=== PATIENT | female | born 2000 | race Caucasian/White ===

== ENCOUNTER 2020-10-01 09:15 | Observation (INO) ==
[2020-10-01 11:10] LABS: Basophils # (auto) 0.03 K/uL (0-0.2); Basophils % (auto) 0.4 %; Eosinophils # (auto) 0.07 K/uL (0-0.5); Eosinophils % (auto) 0.8 %; Hematocrit (blood only) 43.4 % (37-47); Lymphocytes # (auto) 2.68 K/uL (1.2-3.4); Lymphocytes % (auto) 31.9 %; Mean Corpuscular Hgb Conc 34.6 g/dL (32-36); Mean Corpuscular Volume 83.9 fL (80-100); Mean Platelet Volume 9.7 fL (7.4-10.4); Monocytes # (auto) 0.58 K/uL (0.11-0.59); Monocytes % (auto) 6.9 %; Neutrophils # (auto) 5.05 K/uL (1.4-6.5); Platelet Count 365 K/uL (130-400); RDW Coefficient of Variation 14.1 % (11.5-14.5); RDW Standard Deviation 43.2 fL (36.4-46.3); Red Blood Count 5.17 M/uL (4.2-5.4); White Blood Count 8.41 K/uL (4.8-10.8)
[2020-10-01 11:27] LABS: BUN Creatinine Ratio 9.8 (10-20); Calcium 10.5 mg/dl (8.5-10.1); Creatinine Clr Calc Pharmacy 147.5 ml/min; Est GFR (African American) 139.7 ml/min; Est GFR (Non-African American) 120.6 ml/min; Potassium 4.1 mmol/L (3.5-5.1)
[2020-10-01 11:28] LABS: Appearance Urine Clear (Clear); Bacteria Urine Automated 1+ (Negative); Bilirubin Urine Negative (Negative); Blood Urine Trace (Negative); Cast Urine Automated 0 /lpf (0-5); Color Urine Yellow; Epithelial Cell Urine Auto >30 /lpf (0-5); Glucose Urine UA Negative (Negative); Ketones Urine Negative (Negative); Leukocyte Esterase Urine 2+ (Negative); Nitrite Urine Negative (Negative); Protein Urine Negative (Negative); RBC Urine Automated 0-4 /hpf (0-4); Specific Gravity Urine 1.007 (1.000-1.030); Urobilinogen Urine Negative (Negative)
[2020-10-01 11:33] LABS: Bilirubin,Total 2.1 mg/dl (0.2-1)
[2020-10-01] MEDS ORDERED: SODIUM CHLORIDE 0.9% 1000ML 1,000 ML IV ONE (12:27)
[2020-10-01] MEDS ORDERED: KETOROLAC TROMETHAMINE 15 MG/ML VIAL IV ONE (12:28)
--- NOTE | 2020-10-01 12:32 | Emergency Department Note ---
Impression & Plan Choledocholithiasis, Elevated LFTs, Abdominal pain, Cholelithiasis ED Provider Note NAME: YVONNE ALEGRIA AGE: 20 SEX: F : 2000 ARRIVES VIA: Walk-In INFORMANT: Patient ED PROVIDER(S): Zeke Pritchard DO CHIEF COMPLAINT: Abdominal pain HPI: Patient is a 20-year-old female who presents the ER for abdominal pain. Symptoms started last night and has been constant in the epigastric region. Associate with nausea but no vomiting. She denies any dysuria, urgency, or frequency. She notes she has been getting this for over a year. Symptoms come and go. She does not believe that is associated with eating and drinking. She notes it is worse at night. Over the past week she has been getting this daily. Denies any chest pain or shortness of breath. No other exacerbating or remitting factors. Pain is fairly mild at this time she does not want anything for pain. ROS: See above HPI for pertinent positives & negatives. A total of 10 systems reviewed and were otherwise negative. PAST MEDICAL HISTORY:See Below PAST SURGICAL HISTORY:See Below FAMILY HISTORY:See Below SOCIAL HISTORY:See Below HOME MEDICATIONS:See Below ALLERGIES:See Below VITALS:See Below PHYSICAL EXAMINATION: GENERAL: Sitting up in bed, alert, well appearing, well nourished, no distress, non-toxic EYE EXAM: normal conjunctiva. OROPHARYNX: no exudate, no erythema, lips, buccal mucosa, and tongue normal and mucous membranes are moist NECK: supple, no nuchal rigidity, no adenopathy, non-tender LUNGS: Clear to auscultation. Normal chest wall mechanics HEART: no murmurs, S1 normal and S2 normal ABDOMEN: abdomen soft, non-tender, normo-active bowel sounds, no masses, no re bound or guarding. UPPER EXTREMITIES: upper extremities are grossly normal. LOWER EXTREMITIES: No pitting edema. NEURO EXAM: Normal sensorium, cranial nerves II-XII grossly intact, normal speech, no gross weakness of arms, no gross weakness of legs. MEDICAL DECISION MAKING: Patient is a 20-year-old female who presents ER for epigastric abdominal pain. IV was established blood was obtained. Labs show no significant leukocytosis or anemia. BMP was unremarkable. T bili elevated 2.1. AST and ALT were in the 600s. Alk phos was elevated as well. Lipase was unremarkable. UA was contaminated with multiple epithelial cells. was negative. Covid was negative. Ultrasound shows cholelithiasis. CBD of 7 to 8 mm. Question if this is choledocholithiasis. Patient was given IV fluids. She was updated bedside. Discussed with Robinson from gastroenterology. Discussed with the hospitalist for further evaluation. Triage Nursing notes reviewed. Limited review of prior medical records performed Vital Signs: reviewed and remarkable for HTN Differential diagnosis: Differential diagnoses includes but is not limited to gastritis, peptic ulcer disease, GERD, gallbladder disease, pancreatitis, small bowel obstruction, acute coronary syndrome, pericarditis, ischemic bowel, irritable bowel disease, irritable bowel syndrome, appendicitis, diverticulitis, malignancy, hernia, urinary tract infection, torsion, [/ectopic (if female)], perforation, trauma, infectious. ER treatment provided: See below Diagnostics interpreted by me: Cardiac Monitoring: An order was placed for continuous cardiac monitoring. The monitor shows a rate of 62 with sinus rhythm. Laboratory studies: As stated above and show below. Imaging studies: Ultrasound as discussed above Consultation(s): Discussed with gastroenterology as discussed above Discussed with the hospitalist from [facility]. Procedures: none Critical Care: None Past Med/Surg History Medical History Chronic migraine PCOS (polycystic ovarian syndrome) Surgical History History of tonsillectomy Family History Mother Cervical cancer Father Overdose Heart disease Grandmother (Paternal) Diabetes Sister Cancer ALL Social History Smoking Status: Current every day smoker Tobacco Type: Cigarettes and E-cigarettes / Vaping Cigarettes Per Day: 10; Second Hand Exposure: No; Do You Dip or Chew Tobacco: No; Tobacco Cessation Education Requested by Patient: No Hx Alcohol Use: No Hx Substance Use: No Preferred Language: Bahraini Communication Ability: Effective Digital Media Sales Consultant Required: No Beliefs That Will Affect Care: None Current Living Situation: Significant Other and Other Current Living Situation Comment: Boyfriend and Boyfriend's mother Other Information That Helps Us Care for You: No Feels Safe at Home: Yes Safety Concerns: Feels Safe At This Time Assistive Devices: None Allergies Allergies Allergy/AdvReac Type Severity Reaction Status Date / Time latex Allergy Intermediate Hives/Itchi Unverified 10/01/20 12:55 ng hydrocodone Allergy Unknown Hives Unverified 10/01/20 12:55 Home Meds Home Medications Medication Instructions Recorded Confirmed dihydroxyaluminum sodium carb 334 334 mg PO DIRECTED PRN 10/01/20 10/01/20 mg chewable tablet etonogestrel 68 mg subdermal 68 mg SUBDERMAL CONT 10/01/20 10/01/20 implant (Nexplanon) ibuprofen 200 mg tablet 200 mg PO Q6H PRN 10/01/20 10/01/20 Results & Data (ED) Vital Signs Vital Signs - 24 hr 10/01/20 09:50 10/01/20 12:44 Temperature 36.9 C Temperature Source Oral Pulse Rate 62 Pulse Rate [Finger] 70 Respiratory Rate 16 16 Blood Pressure 152/106 H Blood Pressure [Left Arm] 157/102 H Blood Pressure Mean 121 Blood Pressure Mean [Left Arm] 120 Blood Pressure Position [Left Arm] Sitting Pulse Oximetry 99 100 Oxygen Delivery Method Room Air Room Air Sepsis Recent Fever Within 48 Hours No Sepsis New/Unexplained Change in Mental Status No Sepsis Action Taken by Nursing No Action Required Laboratory Data Result diagrams: 10/01/20 10:54 10/01/20 10:54 Lab Results 10/01/20 10/01/20 10/01/20 Range/Units 10:54 10:54 10:55 WBC 8.41 (4.8-10.8) K/uL RBC 5.17 (4.2-5.4) M/uL Hgb 15.0 (12.0-16.0) g/dL Hct 43.4 (37-47) % MCV 83.9 (80-100) fL MCH 29.0 (25-34) pg MCHC 34.6 (32-36) g/dL RDW Std Deviation 43.2 (36.4-46.3) fL RDW Coeff of Adriana 14.1 (11.5-14.5) % Plt Count 365 (130-400) K/uL MPV 9.7 (7.4-10.4) fL Immature Gran % (Auto) 0.0 % Neut % (Auto) 60.0 % Lymph % (Auto) 31.9 % [place] % (Auto) 6.9 % Eos % (Auto) 0.8 % Baso % (Auto) 0.4 % Neut # (Auto) 5.05 (1.4-6.5) K/uL Lymph # (Auto) 2.68 (1.2-3.4) K/uL [place] # (Auto) 0.58 (0.11-0.59) K/uL Eos # (Auto) 0.07 (0-0.5) K/uL Baso # (Auto) 0.03 (0-0.2) K/uL Immature Gran # (Auto) 0.00 (0.00-0.02) K/uL Sodium 138 (136-145) mmol/L Potassium 4.1 (3.5-5.1) mmol/L Chloride 107 (98-107) mmol/L Carbon Dioxide 24 (21-32) mmol/L Anion Gap 7.0 (3-11) BUN 7 (7-18) mg/dl Creatinine 0.72 (0.6-1.2) mg/dl Est Cr Clr Drug Dosing 147.5 ml/min Est GFR ( Amer) 139.7 ml/min Est GFR (Non-Af Amer) 120.6 ml/min BUN/Creatinine Ratio 9.8 L (10-20) Glucose 91 (70-99) mg/dl Calcium 10.5 H (8.5-10.1) mg/dl Total Bilirubin 2.1 H (0.2-1) mg/dl AST 641 H (15-37) U/L ALT 619 H (12-78) U/L Alkaline Phosphatase 129 H (45-117) U/L Total Protein 8.0 (6.4-8.2) gm/dl Albumin 4.0 (3.4-5.0) gm/dl Globulin 4.0 (2.5-4.0) gm/dl Albumin/Globulin Ratio 1.0 (0.9-2) Lipase 150 (73-393) U/L Urine Color Yellow Urine Appearance Clear (Clear) Urine pH 7.0 (4.5-7.5) Ur Specific Antimony 1.007 (1.000-1.030) Urine Protein Negative (Negative) Urine Glucose (UA) Negative (Negative) Urine Ketones Negative (Negative) Urine Blood Trace H (Negative) Urine Nitrite Negative (Negative) Urine Bilirubin Negative (Negative) Urine Urobilinogen Negative (Negative) Ur Leukocyte Esterase 2+ H (Negative) Urine WBC (Auto) 5-10 H (0-5) /hpf Urine RBC (Auto) 0-4 (0-4) /hpf U Hyaline Cast (Auto) 0 (0-5) /lpf U Epithel Cells (Auto) >30 H (0-5) /lpf Urine Bacteria (Auto) 1+ H (Negative) Urine Test (Negative) COVID-19 Eval Order SARS-CoV-2 (PCR) (Negative) 10/01/20 10/01/20 10/01/20 Range/Units 10:55 12:58 12:58 WBC (4.8-10.8) K/uL RBC (4.2-5.4) M/uL Hgb (12.0-16.0) g/dL Hct (37-47) % MCV (80-100) fL MCH (25-34) pg MCHC (32-36) g/dL RDW Std Deviation (36.4-46.3) fL RDW Coeff of Adriana (11.5-14.5) % Plt Count (130-400) K/uL MPV (7.4-10.4) fL Immature Gran % (Auto) % Neut % (Auto) % Lymph % (Auto) % [place] % (Auto) % Eos % (Auto) % Baso % (Auto) % Neut # (Auto) (1.4-6.5) K/uL Lymph # (Auto) (1.2-3.4) K/uL [place] # (Auto) (0.11-0.59) K/uL Eos # (Auto) (0-0.5) K/uL Baso # (Auto) (0-0.2) K/uL Immature Gran # (Auto) (0.00-0.02) K/uL Sodium (136-145) mmol/L Potassium (3.5-5.1) mmol/L Chloride (98-107) mmol/L Carbon Dioxide (21-32) mmol/L Anion Gap (3-11) BUN (7-18) mg/dl Creatinine (0.6-1.2) mg/dl Est Cr Clr Drug Dosing ml/min Est GFR ( Amer) ml/min Est GFR (Non-Af Amer) ml/min BUN/Creatinine Ratio (10-20) Glucose (70-99) mg/dl Calcium (8.5-10.1) mg/dl Total Bilirubin (0.2-1) mg/dl AST (15-37) U/L ALT (12-78) U/L Alkaline Phosphatase (45-117) U/L Total Protein (6.4-8.2) gm/dl Albumin (3.4-5.0) gm/dl Globulin (2.5-4.0) gm/dl Albumin/Globulin Ratio (0.9-2) Lipase (73-393) U/L Urine Color Urine Appearance (Clear) Urine pH (4.5-7.5) Ur Specific Antimony (1.000-1.030) Urine Protein (Negative) Urine Glucose (UA) (Negative) Urine Ketones (Negative) Urine Blood (Negative) Urine Nitrite (Negative) Urine Bilirubin (Negative) Urine Urobilinogen (Negative) Ur Leukocyte Esterase (Negative) Urine WBC (Auto) (0-5) /hpf Urine RBC (Auto) (0-4) /hpf U Hyaline Cast (Auto) (0-5) /lpf U Epithel Cells (Auto) (0-5) /lpf Urine Bacteria (Auto) (Negative) Urine Test Negative (Negative) COVID-19 Eval Order Covid19 at [facility] SARS-CoV-2 (PCR) NEGATIVE (Negative) Administered Medications Discontinued Medications Sodium Chloride (Nss 1000ml) 1,000 mls @ 999 mls/hr IV .Q1H1M ONE Stop: 10/01/20 13:27 Last Infusion: 10/01/20 15:36 Dose: 0 mls/hr Documented by: [id number] Admin: 10/01/20 12:50 Dose: 999 mls/hr Documented by: [id number] Piperacillin Sod/Tazobactam Sod (Zosyn) 4.5 gm in 120 mls @ 240 mls/hr IV NOW ONE Stop: 10/01/20 14:26 Last Infusion: 10/01/20 15:36 Dose: 0 mls/hr Documented by: [id number] Admin: 10/01/20 14:34 Dose: 240 mls/hr Documented by: [id number] Ketorolac Tromethamine (Ketorolac Tromethamine 15 Mg/Ml Vial) 10 mg IV NOW ONE Stop: 10/01/20 12:29 Last Admin: 10/01/20 12:51 Dose: 10 mg Documented by: [id number] Imaging Data Radiologist's Impression: Gallbladder Ultrasound 10/01/20 12:27 ULTRASOUND RIGHT UPPER QUADRANT ABDOMEN CLINICAL HISTORY: Right upper quadrant abdominal pain. COMPARISON STUDY: No priors. TECHNIQUE: Real-time, grayscale, and color flow sonography of the right upper quadrant of the abdomen was performed. Images are reviewed in the transverse and longitudinal planes. FINDINGS: Liver: The liver is normal in size and echotexture. There is no intrahepatic biliary ductal dilatation. The main portal vein is patent. A 1 cm round echogenic focus in the left lobe likely represents a small hemangioma. This is of doubtful significance in this age group. Gallbladder: The gallbladder is filled with shadowing stones. There is no gallbladder wall thickening or pericholecystic fluid. There is mild tenderness while scanning the right upper quadrant. This does not constitute a sonographic Bartlett's sign. The common bile duct measures up to 0.8 cm in diameter. Pancreas: Visualized portions of the pancreatic head and body are normal in appearance. Right kidney: Survey images of the right kidney demonstrate normal size and echotexture. There is no hydronephrosis. Ascites: None. IMPRESSION: Cholelithiasis without clear sonographic evidence of acute cholecystitis. If there strong clinical concern for acute cholecystitis a nuclear hepatobiliary scan could be considered for further assessment. ACT 112: Negative or not required by law. Electronically signed by: Carlos Gomez M.D. 10/01/2020 2:25 PM Discharge Plan Visit Data Chief Complaint: Abdominal Pain Stated Complaint: ABDOMINAL PAIN, REF BY ED Provider: Zeke Pritchard Discharge Problem: Choledocholithiasis, Elevated LFTs, Abdominal pain, Cholelithiasis Patient Disposition: Admitted As Inpatient Discharge Instructions Interventions: ED Discharge Assessment Last Done: 10/01/20 16:39
[2020-10-01 12:57] LABS: Pregnancy Test, Urine Negative (Negative)
[2020-10-01] MEDS ORDERED: PIPERACILL/TAZOBAC CONSULT ACTIVE PRN ×2 (13:57→17:03)
[2020-10-01] MEDS ORDERED: PIPERACILLIN/TAZOBACTAM 4.5 GM/120 ML BAG IV ONE (13:57)
--- NOTE | 2020-10-01 14:27 | Ultrasound Report ---
ULTRASOUND RIGHT UPPER QUADRANT ABDOMEN CLINICAL HISTORY: Right upper quadrant abdominal pain. COMPARISON STUDY: No priors. TECHNIQUE: Real-time, grayscale, and color flow sonography of the right upper quadrant of the abdomen was performed. Images are reviewed in the transverse and longitudinal planes. FINDINGS: Liver: The liver is normal in size and echotexture. There is no intrahepatic biliary ductal dilatatio n. The main portal vein is patent. A 1 cm round echogenic focus in the left lobe likely represents a small hemangioma. This is of doubtful significance in this age group. Gallbladder: The gallbladder is filled with shadowing stones. There is no gallbladder wall thickening or pericholecystic fluid. There is mild tenderness while scanning the right upper quadrant. This gr s not constitute a sonographic Bartlett's sign. The common bile duct measures up to 0.8 cm in diameter. Pancreas: Visualized portions of the pancreatic head and body are normal in appearance. Right kidney: Survey images of the right kidney demonstrate normal size and echotexture. There is no hydronephrosis. Ascites: None. IMPRESSION: Cholelithiasis without clear sonographic evidence of acute cholecystitis. If there strong clinical concern for acute cholecystitis a nuclear hepatobiliary scan could be considered for furthe r assessment. ACT 112: Negative or not required by law. Electronically signed by: Carlos Gomez M.D. 10/01/2020 2:25 PM
--- NOTE | 2020-10-01 14:31 | History & Physical Report ---
Date of Service October 01, 2020 Assessment & Plan (1) Abdominal pain: (2) Cholelithiasis: (3) Elevated LFTs: Plan: 20 year old with acute onset abdomninal pain with transaminitis AST 641, ALT 619, T bili 2.1, ALP 129 No s/sx of SIRS/SEPSIS Pain has subsided U/S: IMPRESSION: Cholelithiasis without clear sonographic evidence of acute cholecystitis. If there strong clinical concern for acute cholecystitis a nuclear hepatobiliary scan could be considered for further assessment. admit to med/surg consult gastroenterology clear liquid diet, NPO after midnight EGD/EUS by gastro tomorrow IV Zosyn IVF LR @ 125cc/hr pain control consult gen surg to eval for possible lap teresa trend lft (4) Morbid obesity with BMI of 40.0-44.9, adult: Plan: educate on diet and lifestyle modifications (5) Hypercalcemia: Plan: likely secondary to significant TUMS ingestion IV hydration am labs Dispo: med/surg PCP: Jonathan FULL CODE Pt was seen and examined with Dr. Nevarez, please see addendum History of Present Illness Chief Complaint: Abd pain x 1 day. Primary Care Provider: Dr. Castillo This is an otherwise healthy F who presents to ED 03/11 to abdominal pain x 1 day. She was awoke from her sleep at 2 a.m. 2/ to sharp stabbing abdominal pain located in epigastrum and across top of abdomen. It was constant, waxed and waned in severity, 10/10 at worse, 4/10 at best, nothing made better or worse, tried tums, associated nausea. Admits to 1 week ago having 2-3 days of, "mustard colored stool." Has had pain similar in past but not as severe. Since July 2019 has had intermittent epigastric pain with radiation to RUQ. Pain would last minutes to hours. She associated it with her nexplanon. She does not associated her sx with meals. Although, she has been at the [employer] everyday eating fried foods. She feels she is up to date on her vaccinations, admits to a prior hx of mononucleosis. Denies excessive APAP use and does not consume alcohol. She denies f/c/s, dizziness, lightheaded, chest pain, sob, n/v/d, change in urinary habits including dysuria, hematuria, increased urgency or frequency with urination. Currently pain has subsided but remains sore to touch. In ED patient remains hemodynamically stable. Lab work notable for transaminitis with AST 621, ALT 619, total bilirubin 2.1, alk phos 129. Her lipase was unremarkable as was her white count. She underwent gallbladder ultrasound which revealed cholelithiasis without clear evidence of acute cholecystitis. She received 1 dose of IV Zosyn. Allergies Allergy/AdvReac Type Severity Reaction Status Date / Time latex Allergy Intermediate Hives/Itchi Unverified 10/01/20 12:55 ng hydrocodone Allergy Unknown Hives Unverified 10/01/20 12:55 Home Medications Medication Instructions Recorded Confirmed Type dihydroxyaluminum sodium carb 334 334 mg PO DIRECTED PRN 10/01/20 10/01/20 History mg chewable tablet etonogestrel 68 mg subdermal 68 mg SUBDERMAL CONT 10/01/20 10/01/20 History implant (Nexplanon) ibuprofen 200 mg tablet 200 mg PO Q6H PRN 10/01/20 10/01/20 History Past Med/Surg History Medical History Chronic migraine PCOS (polycystic ovarian syndrome) Surgical History History of tonsillectomy Family History Mother Cervical cancer Father Overdose Heart disease Grandmother (Paternal) Diabetes Sister Cancer ALL Social History Smoking Status: Current every day smoker Tobacco Type: Cigarettes and E-cigarettes / Vaping Hx Alcohol Use: No Hx Substance Use: Yes Non-Prescribed Medications: Marijuana Preferred Language: Nauruan Feels Safe at Home: Yes Review of Systems Review of Systems: All systems reviewed & are unremarkable except as noted in HPI & below Physical Exam Physical Exam: Constitutional: WD/WN, vitals as above, NAD, sitting up in bed, pleasant, conversing easily Head: Normocephalic, Atraumatic Eyes: PERRL, conjunctivae normal, anicteric sclerae ENMT: external ear and nose normal, oropharynx normal Neck: trachea midline, no thyromegaly normal visual inspection Respiratory: normal respiratory effort, lungs clear to auscultation, no wheeze, rales, rhonchi. Normal insp/exp effort, no accessory muscle use Cardiovascular: RRR, no murmur, no edema Vessels: no JVD or carotid bruit Chest: normal inspection of chest Abdomen: Obese abdomen, normal bowel sounds, soft, nontender, no hepatosplenomegaly Musculoskeletal: no cyanosis or clubbing, extremities motor strength 5/5 Skin: no rashes, warm and dry normal turgor Neurologic: PERRL, EOMI, accommodation nl, no face palsy, no dysarthria CN's II-XI intact bilaterally and moves all extremities Psychiatric: A+Ox3, euthymic affect Lymphatic: no cervical or axillary lymphadenopathy : deferred Results & Data Results & Data ([facility]) Vital Signs (Past 12 Hours) Vital Signs Temp Pulse Pulse Resp BP BP Pulse Ox 10/01/20 12:44 70 16 157/102 H 100 10/01/20 09:50 36.9 C 62 16 152/106 H 99 Diagnostic Findings Gallbladder Ultrasound 10/01/20 12:27 ULTRASOUND RIGHT UPPER QUADRANT ABDOMEN CLINICAL HISTORY: Right upper quadrant abdominal pain. COMPARISON STUDY: No priors. TECHNIQUE: Real-time, grayscale, and color flow sonography of the right upper quadrant of the abdomen was performed. Images are reviewed in the transverse and longitudinal planes. FINDINGS: Liver: The liver is normal in size and echotexture. There is no intrahepatic biliary ductal dilatation. The main portal vein is patent. A 1 cm round echogenic focus in the left lobe likely represents a small hemangioma. This is of doubtful significance in this age group. Gallbladder: The gallbladder is filled with shadowing stones. There is no gallbladder wall thickening or pericholecystic fluid. There is mild tenderness while scanning the right upper quadrant. This does not constitute a sonographic Bartlett's sign. The common bile duct measures up to 0.8 cm in diameter. Pancreas: Visualized portions of the pancreatic head and body are normal in appearance. Right kidney: Survey images of the right kidney demonstrate normal size and echotexture. There is no hydronephrosis. Ascites: None. IMPRESSION: Cholelithiasis without clear sonographic evidence of acute cholecystitis. If there strong clinical concern for acute cholecystitis a nuclear hepatobiliary scan could be considered for further assessment. ACT 112: Negative or not required by law. Electronically signed by: Carlos Gomez M.D. 10/01/2020 2:25 PM Medications Administered Medication List Discontinued Medications Sodium Chloride (Nss 1000ml) 1,000 mls @ 999 mls/hr IV .Q1H1M ONE Stop: 10/01/20 13:27 Last Admin: 10/01/20 12:50 Dose: 999 mls/hr Documented by: [id number] Ketorolac Tromethamine (Ketorolac Tromethamine 15 Mg/Ml Vial) 10 mg IV NOW ONE Stop: 10/01/20 12:29 Last Admin: 10/01/20 12:51 Dose: 10 mg Documented by: [id number] COVID-19 Results Results COVID-19 Adm Lab Results: RBC 5.17 M/uL (4.2-5.4) 10/01/20 WBC 8.41 K/uL (4.8-10.8) 10/01/20 Hgb 15.0 g/dL (12.0-16.0) 10/01/20 Hct 43.4 % (37-47) 10/01/20 Plt Count 365 K/uL (130-400) 10/01/20 Neutrophils (%) (Auto) 60.0 % 10/01/20 Lymphocytes (%) (Auto) 31.9 % 10/01/20 Monocytes # (Auto) 0.58 K/uL (0.11-0.59) 10/01/20 Eosinophils # (Auto) 0.07 K/uL (0-0.5) 10/01/20 Immature Granulocyte % (Auto) 0.0 % 10/01/20 Neutrophils # (Auto) 5.05 K/uL (1.4-6.5) 10/01/20 Lymphocytes # (Auto) 2.68 K/uL (1.2-3.4) 10/01/20 Monocytes # (Auto) 0.58 K/uL (0.11-0.59) 10/01/20 Eosinophils # (Auto) 0.07 K/uL (0-0.5) 10/01/20 Basophils # (Auto) 0.03 K/uL (0-0.2) 10/01/20 Immature Granulocyte # (Auto) 0.00 K/uL (0.00-0.02) 10/01/20 Na 138 mmol/L (136-145) 10/01/20 K 4.1 mmol/L (3.5-5.1) 10/01/20 Cl 107 mmol/L (98-107) 10/01/20 CO2 24 mmol/L (21-32) 10/01/20 Anion Gap 7.0 (3-11) 10/01/20 BUN 7 mg/dl (7-18) 10/01/20 Creatinine 0.72 mg/dl (0.6-1.2) 10/01/20 BUN/Creatinine Ratio 9.8 (10-20) L 10/01/20 Glucose Level 91 mg/dl (70-99) 10/01/20 Ca 10.5 mg/dl (8.5-10.1) H 10/01/20 Total Bilirubin 2.1 mg/dl (0.2-1) H 10/01/20 AST/SGOT 641 U/L (15-37) H 10/01/20 ALT/SGPT 619 U/L (12-78) H 10/01/20 Alkaline Phosphatase 129 U/L (45-117) H 10/01/20 Total Protein 8.0 gm/dl (6.4-8.2) 10/01/20 Albumin 4.0 gm/dl (3.4-5.0) 10/01/20 Globulin 4.0 gm/dl (2.5-4.0) 10/01/20 Albumin/Globulin Ratio 1.0 (0.9-2) 10/01/20 COVID-19 PCR NEGATIVE (Negative) 10/01/20 Code Status & VTE Plan Code Status Full Code VTE Prophylaxis Plan VTE Prophylaxis will be ordered: No
--- NOTE | 2020-10-01 15:29 | Gastrointestinal Consultation ---
Date of Consultation October 01, 2020 Supervising Physician Co-Signing Physician Notes I performed a history and physical examination of the patient today, including specifically on physical exam - soft abdomen. I have discussed the patient's management with the advanced practitioner. Please refer to the nurse practitioner's note for the documented findings and plan of care. EUS/ERCP History of Present Illness Reason for Consultation: Abdominal pain; elevated LFTs Requesting Physician: Dr. Zeke Pritchard Attending Physician: Dr. Cecille Ramírez History of Present Illness Pt is a 20 yo female who presented to ED w c/o upper abd pain w radiation to RUQ, R flank area. She had been intermittent upper abd pain and heartburn type symptoms for few years. She initially thought last night her abd pain was related to worsening heartburn or side effect from her Nexplanon (started in 2018). She denies fever, chills, +nausea w/o vomiting, no jaundice, unexpected weight loss, changes in bowel habits, dark urine. On eval labs w/o leukocytosis, no renal disease. LFTs up: Tbili 2.1, AST/ALT 641/619, Alk phos 129, Lipase 150. Gallbladder us showed signs of cholelithiasis w/o acute cholecystitis. CBD 8mm. She denies home meds including antibx or large amt of APAP Denies family hx of autoimmune dz or liver dz, malignancy She smokes cigarettes and marijuana. Denies ETOH ASSESSMENT/PLAN: Pt is a 20 yo female w upper abd pain, nausea, elevated LFTs noted to have cholelithiasis w/o acute cholecystitis and CBD of 8mm on RUQ us. Suspect possibly had choledocholithiasis which may had passed - CL diet ok today but keep NPO after midnight for EUS/ERCP by Dr. Ramírez in OR on 10/02/20 - Consult Surgery for possible cholecystectomy - Zosyn IV coverage - Trend LFTs Allergies Allergy/AdvReac Type Severity Reaction Status Date / Time latex Allergy Intermediate Hives/Itchi Unverified 10/01/20 12:55 ng hydrocodone Allergy Unknown Hives Unverified 10/01/20 12:55 Home Medications Medication Instructions Recorded Confirmed Type dihydroxyaluminum sodium carb 334 334 mg PO DIRECTED PRN 10/01/20 10/01/20 History mg chewable tablet etonogestrel 68 mg subdermal 68 mg SUBDERMAL CONT 10/01/20 10/01/20 History implant (Nexplanon) ibuprofen 200 mg tablet 200 mg PO Q6H PRN 10/01/20 10/01/20 History Patient History Medical History Chronic migraine PCOS (polycystic ovarian syndrome) Surgical History History of tonsillectomy Family History Mother Cervical cancer Father Overdose Heart disease Grandmother (Paternal) Diabetes Sister Cancer ALL Social History Smoking Status: Current every day smoker Tobacco Type: Cigarettes and E-cigarettes / Vaping Cigarettes Per Day: 10; Second Hand Exposure: No; Do You Dip or Chew Tobacco: No; Tobacco Cessation Education Requested by Patient: No Hx Alcohol Use: No Hx Substance Use: No Preferred Language: Nepali Communication Ability: Effective 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 Beliefs That Will Affect Care: None Current Living Situation: Significant Other and Other Current Living Situation Comment: Boyfriend and Boyfriend's mother Other Information That Helps Us Care for You: No Feels Safe at Home: Yes Safety Concerns: Feels Safe At This Time Assistive Devices: None Review of Systems Review of Systems: All systems reviewed & are unremarkable except as noted in HPI & below Constitutional: as per Subjective / HPI Physical Exam Constitutional: WD/WN, vitals as above well groomed, cooperative and comfortable Eyes: PERRL, conjunctivae normal, anicteric sclerae ENMT: external ear and nose normal, oropharynx normal Respiratory: normal respiratory effort, lungs clear to auscultation Cardiovascular: RRR, no murmur, no edema Gastrointestinal (Abdomen): TTP across upper abd area, BS hypoactive, soft Skin: no rashes, warm and dry no jaundice Psychiatric: A+Ox3, euthymic affect Lymphatic: no lymphedema Results & Data ([facility]) Vital Signs (Past 12 Hours) Vital Signs Temp Pulse Pulse Resp BP BP Pulse Ox 10/01/20 14:36 72 18 124/91 98 10/01/20 12:44 70 16 157/102 H 100 10/01/20 09:50 36.9 C 62 16 152/106 H 99
--- NOTE | 2020-10-01 16:06 | Surgery Consultation ---
Date of Consultation October 01, 2020 Assessment & Plan (1) Cholelithiasis: 20 year-old female presented to ED with upper abdominal pain that has been present consistently for past week and increased in severity in last few days with associated nausea. History of intermittent upper abdominal pain for past few months. US showing gallstones with dilated CBD at 8mm no signs of acute cholecystitis. T. bili 2 and lfts elevated concerning for choledocholithiasis Plan: Discussed with patient ultrasound and laboratory findings with concern for possible choledocholithiasis and option of cholecystectomy to prevent further biliary obstruction. Discussed option of lap teresa at same time as ERCP tomorrow. Discussed procedure and risks and expected recovery and restrictions. Liquids tonight NPO after midnight IV fluids, pain management as needed, antiemetics as needed Dr. Gudino to evaluate and obtained consent for procedure. I ( Matteo Gudino MD ) reviewed pt's H/P, labs U/S study with pt, I recommend to do laparoscopic cholecystectomy, possible open or cholangiogram follow up ERCP, D/W benefits, risks and alternatives of the surgery, the risks - infection,bleeding, injury other organs, incisional hernia, pt understood, she agrees with the surgery, I answered all all questions, NPO after MN, (2) Elevated LFTs: dilated cbd of 8 mm on US, likely choledocholithasis plan as above (3) Abdominal pain: plan as above Discussed with Dr. Gudino who agrees with above. History of Present Illness Reason for Consultation: Cholelithiasis with biliary obstruction Requesting Physician: Sammie Guerrero PA-C Attending Physician: Dr. Nevarez History of Present Illness Bushra is a 20 year-old female who presented to ED with complaint of upper abdominal pain with associated nausea that has been present for the past week but increased in severity the last few days. States she has had intermittent abdominal pain for past few months. Also has some heartburn and was taking TUMS without relief of pain. Ibuprofen did not help with the pain. Denies fever, chills, vomiting, changes in bowel habits, diarrhea, constipation, blood in stools, or difficulty urinating. No prior history of abdominal surgery. Allergies Allergy/AdvReac Type Severity Reaction Status Date / Time latex Allergy Intermediate Hives/Itchi Unverified 10/01/20 12:55 ng hydrocodone Allergy Unknown Hives Unverified 10/01/20 12:55 Home Medications Medication Instructions Recorded Confirmed Type dihydroxyaluminum sodium carb 334 334 mg PO DIRECTED PRN 10/01/20 10/01/20 History mg chewable tablet etonogestrel 68 mg subdermal 68 mg SUBDERMAL CONT 10/01/20 10/01/20 History implant (Nexplanon) ibuprofen 200 mg tablet 200 mg PO Q6H PRN 10/01/20 10/01/20 History Patient History Medical History Chronic migraine PCOS (polycystic ovarian syndrome) Surgical History History of tonsillectomy Family History Mother Cervical cancer Father Overdose Heart disease Grandmother (Paternal) Diabetes Sister Cancer ALL Social History Smoking Status: Current every day smoker Tobacco Type: Cigarettes and E-cigarettes / Vaping Cigarettes Per Day: 10; Second Hand Exposure: No; Do You Dip or Chew Tobacco: No; Tobacco Cessation Education Requested by Patient: No Hx Alcohol Use: No Hx Substance Use: No Preferred Language: Uzbek Communication Ability: Effective 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 Beliefs That Will Affect Care: None Current Living Situation: Significant Other and Other Current Living Situation Comment: Boyfriend and Boyfriend's mother Other Information That Helps Us Care for You: No Feels Safe at Home: Yes Safety Concerns: Feels Safe At This Time Assistive Devices: None Physical Exam Constitutional: WD/WN, vitals as above + obese; no acute distress and not ill appearing Respiratory: normal respiratory effort, lungs clear to auscultation Cardiovascular: RRR, no murmur, no edema Gastrointestinal (Abdomen): Inspection/Auscultation: abdomen normal to inspection; abdomen not distended Percussion/Palpation: + abdomen tender (RUQ and epigastrium) and abdomen soft; no guarding and abdomen not rigid Skin: no rashes, warm and dry Psychiatric: Orientation: alert and oriented x 3 Results & Data ([facility]) Vital Signs (Past 12 Hours) Vital Signs Temp Pulse Pulse Resp BP BP Pulse Ox 08/25/21 14:36 72 18 124/91 98 10/01/20 12:44 70 16 157/102 H 100 10/01/20 09:50 36.9 C 62 16 152/106 H 99 Laboratory Results 10/01/20 10/01/20 10/01/20 Range/Units 12:58 12:58 10:55 WBC (4.8-10.8) K/uL RBC (4.2-5.4) M/uL Hgb (12.0-16.0) g/dL Hct (37-47) % MCV (80-100) fL MCH (25-34) pg MCHC (32-36) g/dL RDW Std Deviation (36.4-46.3) fL RDW Coeff of Adriana (11.5-14.5) % Plt Count (130-400) K/uL MPV (7.4-10.4) fL Immature Gran % (Auto) % Neut % (Auto) % Lymph % (Auto) % [place] % (Auto) % Eos % (Auto) % Baso % (Auto) % Neut # (Auto) (1.4-6.5) K/uL Lymph # (Auto) (1.2-3.4) K/uL [place] # (Auto) (0.11-0.59) K/uL Eos # (Auto) (0-0.5) K/uL Baso # (Auto) (0-0.2) K/uL Immature Gran # (Auto) (0.00-0.02) K/uL Sodium (136-145) mmol/L Potassium (3.5-5.1) mmol/L Chloride (98-107) mmol/L Carbon Dioxide (21-32) mmol/L Anion Gap (3-11) BUN (7-18) mg/dl Creatinine (0.6-1.2) mg/dl Est Cr Clr Drug Dosing ml/min Est GFR ( Amer) ml/min Est GFR (Non-Af Amer) ml/min BUN/Creatinine Ratio (10-20) Glucose (70-99) mg/dl Calcium (8.5-10.1) mg/dl Total Bilirubin (0.2-1) mg/dl AST (15-37) U/L ALT (12-78) U/L Alkaline Phosphatase (45-117) U/L Total Protein (6.4-8.2) gm/dl Albumin (3.4-5.0) gm/dl Globulin (2.5-4.0) gm/dl Albumin/Globulin Ratio (0.9-2) Lipase (73-393) U/L Urine Color Urine Appearance (Clear) Urine pH (4.5-7.5) Ur Specific [place] (1.000-1.030) Urine Protein (Negative) Urine Glucose (UA) (Negative) Urine Ketones (Negative) Urine Blood (Negative) Urine Nitrite (Negative) Urine Bilirubin (Negative) Urine Urobilinogen (Negative) Ur Leukocyte Esterase (Negative) Urine WBC (Auto) (0-5) /hpf Urine RBC (Auto) (0-4) /hpf U Hyaline Cast (Auto) (0-5) /lpf U Epithel Cells (Auto) (0-5) /lpf Urine Bacteria (Auto) (Negative) Urine Test Negative (Negative) COVID-19 Eval Order Covid19 at [facility] SARS-CoV-2 (PCR) NEGATIVE (Negative) 10/01/20 10/01/20 10/01/20 Range/Units 10:55 10:54 10:54 WBC 8.41 (4.8-10.8) K/uL RBC 5.17 (4.2-5.4) M/uL Hgb 15.0 (12.0-16.0) g/dL Hct 43.4 (37-47) % MCV 83.9 (80-100) fL MCH 29.0 (25-34) pg MCHC 34.6 (32-36) g/dL RDW Std Deviation 43.2 (36.4-46.3) fL RDW Coeff of Adriana 14.1 (11.5-14.5) % Plt Count 365 (130-400) K/uL MPV 9.7 (7.4-10.4) fL Immature Gran % (Auto) 0.0 % Neut % (Auto) 60.0 % Lymph % (Auto) 31.9 % [place] % (Auto) 6.9 % Eos % (Auto) 0.8 % Baso % (Auto) 0.4 % Neut # (Auto) 5.05 (1.4-6.5) K/uL Lymph # (Auto) 2.68 (1.2-3.4) K/uL [place] # (Auto) 0.58 (0.11-0.59) K/uL Eos # (Auto) 0.07 (0-0.5) K/uL Baso # (Auto) 0.03 (0-0.2) K/uL Immature Gran # (Auto) 0.00 (0.00-0.02) K/uL Sodium 138 (136-145) mmol/L Potassium 4.1 (3.5-5.1) mmol/L Chloride 107 (98-107) mmol/L Carbon Dioxide 24 (21-32) mmol/L Anion Gap 7.0 (3-11) BUN 7 (7-18) mg/dl Creatinine 0.72 (0.6-1.2) mg/dl Est Cr Clr Drug Dosing 147.5 ml/min Est GFR ( Amer) 139.7 ml/min Est GFR (Non-Af Amer) 120.6 ml/min BUN/Creatinine Ratio 9.8 L (10-20) Glucose 91 (70-99) mg/dl Calcium 10.5 H (8.5-10.1) mg/dl Total Bilirubin 2.1 H (0.2-1) mg/dl AST 641 H (15-37) U/L ALT 619 H (12-78) U/L Alkaline Phosphatase 129 H (45-117) U/L Total Protein 8.0 (6.4-8.2) gm/dl Albumin 4.0 (3.4-5.0) gm/dl Globulin 4.0 (2.5-4.0) gm/dl Albumin/Globulin Ratio 1.0 (0.9-2) Lipase 150 (73-393) U/L Urine Color Yellow Urine Appearance Clear (Clear) Urine pH 7.0 (4.5-7.5) Ur Specific [place] 1.007 (1.000-1.030) Urine Protein Negative (Negative) Urine Glucose (UA) Negative (Negative) Urine Ketones Negative (Negative) Urine Blood Trace H (Negative) Urine Nitrite Negative (Negative) Urine Bilirubin Negative (Negative) Urine Urobilinogen Negative (Negative) Ur Leukocyte Esterase 2+ H (Negative) Urine WBC (Auto) 5-10 H (0-5) /hpf Urine RBC (Auto) 0-4 (0-4) /hpf U Hyaline Cast (Auto) 0 (0-5) /lpf U Epithel Cells (Auto) >30 H (0-5) /lpf Urine Bacteria (Auto) 1+ H (Negative) Urine Test (Negative) COVID-19 Eval Order SARS-CoV-2 (PCR) (Negative) Diagnostic Findings ULTRASOUND RIGHT UPPER QUADRANT ABDOMEN CLINICAL HISTORY: Right upper quadrant abdominal pain. COMPARISON STUDY: No priors. TECHNIQUE: Real-time, grayscale, and color flow sonography of the right upper quadrant of the abdomen was performed. Images are reviewed in the transverse and longitudinal planes. FINDINGS: Liver: The liver is normal in size and echotexture. There is no intrahepatic biliary ductal dilatation. The main portal vein is patent. A 1 cm round echogenic focus in the left lobe likely represents a small hemangioma. This is of doubtful significance in this age group. Gallbladder: The gallbladder is filled with shadowing stones. There is no gallbladder wall thickening or pericholecystic fluid. There is mild tenderness while scanning the right upper quadrant. This does not constitute a sonographic Bartlett's sign. The common bile duct measures up to 0.8 cm in diameter. Pancreas: Visualized portions of the pancreatic head and body are normal in appearance. Right kidney: Survey images of the right kidney demonstrate normal size and echotexture. There is no hydronephrosis. Ascites: None. IMPRESSION: Cholelithiasis without clear sonographic evidence of acute cholecystitis. If there strong clinical concern for acute cholecystitis a nuclear hepatobiliary scan could be considered for further assessment.
[2020-10-01] MEDS ORDERED: POLYETHYLENE (MIRALAX) 17 GM PACK PO PRN (17:03)
[2020-10-01] MEDS ORDERED: ONDANSETRON INJ 2 MG/ML 2 ML VIAL IV PRN (17:03)
[2020-10-01] MEDS ORDERED: ALUMINUM/MAGNESIUM SUSP 30 ML UDC PO PRN (17:03)
[2020-10-01] MEDS ORDERED: MAGNESIUM HYDROXIDE SUSP 30 ML UDC PO PRN (17:03)
[2020-10-01 18:21] LABS: Hepatitis B Surf Ag Rflx Conf Neg (Neg)
[2020-10-01 18:49] LABS: Hepatitis C IgG 13Yrs+Old_Rflx Neg (Neg)
[2020-10-01] MEDS: PIPERACILLIN/TAZOBACTAM 4.5 GM in DEXTROSE 5% 100 ML IV SCH (18:56)
[2020-10-01] MEDS: ACETAMINOPHEN 325 MG TAB PO PRN (19:01)
[2020-10-02] MEDS: PIPERACILLIN/TAZOBACTAM 4.5 GM in DEXTROSE 5% 100 ML IV SCH ×3 (02:39→19:32)
[2020-10-02] MEDS ORDERED: INDOMETHACIN 50 MG SUPP PR SCH (07:00)
[2020-10-02 07:36] LABS: Basophils # (auto) 0.04 K/uL (0-0.2); Basophils % (auto) 0.7 %; Eosinophils # (auto) 0.19 K/uL (0-0.5); Eosinophils % (auto) 3.1 %; Hemoglobin 14.7 g/dL (12.0-16.0); Immature Granulocytes # (auto) 0.01 K/uL (0.00-0.02); Immature Granulocytes % (auto) 0.2 %; Lymphocytes # (auto) 2.15 K/uL (1.2-3.4); Lymphocytes % (auto) 35.6 %; Mean Corpuscular Hgb Conc 34.2 g/dL (32-36); Mean Corpuscular Volume 84.8 fL (80-100); Mean Platelet Volume 9.9 fL (7.4-10.4); Monocytes # (auto) 0.45 K/uL (0.11-0.59); Monocytes % (auto) 7.5 %; Neutrophils % (auto) 52.9 %; Platelet Count 350 K/uL (130-400); RDW Coefficient of Variation 14.2 % (11.5-14.5); RDW Standard Deviation 44.1 fL (36.4-46.3); Red Blood Count 5.07 M/uL (4.2-5.4); White Blood Count 6.04 K/uL (4.8-10.8)
[2020-10-02 08:05] LABS: Albumin Level 3.4 gm/dl (3.4-5.0); Calcium 8.9 mg/dl (8.5-10.1); Creatinine Clr Calc Pharmacy 119.3 ml/min; Est GFR (African American) 108.1 ml/min; Est GFR (Non-African American) 93.3 ml/min; Magnesium 2.2 mg/dl (1.8-2.4); Potassium 3.9 mmol/L (3.5-5.1)
[2020-10-02 08:07] LABS: Bilirubin,Total 2.5 mg/dl (0.2-1); Globulin 3.5 gm/dl (2.5-4.0); Total Protein 6.9 gm/dl (6.4-8.2)
--- NOTE | 2020-10-02 08:38 | Gastroenterology Progress Note ---
Date of Service October 02, 2020 Assessment & Plan (1) Choledocholithiasis: (2) Cholelithiasis: (3) Elevated LFTs: Plan: Pt is a 20 yo female w upper abd pain, nausea, elevated LFTs noted to have cholelithiasis w/o acute cholecystitis and CBD of 8mm on RUQ us. Suspect possibly had choledocholithiasis which may had passed - NPO for EUS/ERCP by Dr. Ramírez in OR today; followed by cholecystectomy by Surgery - Hallien IV coverage - Trend LFTs - GI recs to follow after EUS/ERCP completed Admission and Anticipated Discharge Date Admission Date: October 01, 2020 Supervising Physician Co-Signing Physician Notes I performed a history and physical examination of the patient today, including specifically on physical exam - soft abdomen. I have discussed the patient's management with the advanced practitioner. Please refer to the nurse practitioner's note for the documented findings and plan of care. EUS/ERCP Patient was explained in detail regarding risks, benefits, limitations and alternatives of the above endoscopic procedure. Risks of intravenous sedation used for procedure were also explained. Risks include, but not limited to perforation, bleeding, infection, respiratory distress, cardiac arrest and . Patient is also aware about the possibility of missed lesion. Patient's questions were answered. The patient verbalized understanding the information and agreed to undergo the procedure. Subjective Pt r/o mild RUQ abd pain, nausea but no vomiting. No fever, chills, CP, SOB. No BMs. Review of Systems Constitutional: as per Subjective / HPI Physical Exam Constitutional: WD/WN, vitals as above well groomed, cooperative and comfortable Eyes: PERRL, conjunctivae normal, anicteric sclerae ENMT: external ear and nose normal, oropharynx normal Respiratory: normal respiratory effort, lungs clear to auscultation Cardiovascular: RRR, no murmur, no edema Gastrointestinal (Abdomen): RUQ TTP, soft, hypoactive BS Skin: no rashes, warm and dry no jaundice Psychiatric: A+Ox3, euthymic affect Lymphatic: no lymphedema Results & Data ([facility]) Vital Signs (Past 12 Hours) Vital Signs Temp Pulse Resp BP Pulse Ox 10/02/20 07:29 37.2 C 72 17 123/82 98 10/01/20 23:00 36.8 C 84 18 118/68 99 (1) Cholelithiasis Biliary obstruction: with biliary obstruction Cholelithiasis location: other site Qualified Code(s): K80.81 - Other cholelithiasis with obstruction
[2020-10-02] MEDS: ACETAMINOPHEN 65 ML IV PRN ×2 (10:21→22:12)
--- NOTE | 2020-10-02 12:05 | History & Physical Bridge Note ---
Date of Service October 02, 2020 History & Physical Bridge Note I have examined the patient, reviewed the History & Physical and in the interval since the performance of the History & Physical I have noted the following changes of clinical significance: no changes noted Supervising Physician Co-Signing Physician Notes I performed a history and physical examination of the patient today, including specifically on physical exam - soft abdomen. I have discussed the patient's management with the advanced practitioner. Please refer to the nurse practitioner's note for the documented findings and plan of care. EUS/ERCP
[2020-10-02] MEDS ORDERED: PROPOFOL IV EMULSION 10 MG/ML 20 ML VIAL IV ONE (14:00)
[2020-10-02] MEDS ORDERED: MIDAZOLAM HCL 1 MG/ML 2ML VIAL ONE (14:00)
[2020-10-02] MEDS ORDERED: fentaNYL citrate 100 MCG/2 ML VIAL ONE ×3 (14:00→16:14)
[2020-10-02] MEDS ORDERED: LIDOCAINE 2% 2 ML VIAL/AMP(20MG/ML) INFIL ONE (14:00)
[2020-10-02] MEDS ORDERED: SUCCINYLCHOLINE 100MG/5ML SYR IV ONE (14:10)
[2020-10-02] MEDS ORDERED: DEXAMETHASONE SOD INJ 4 MG/ML VIAL ONE ×2 (14:10→16:19)
[2020-10-02] MEDS ORDERED: ONDANSETRON INJ 2 MG/ML 2 ML VIAL ONE ×2 (14:10)
[2020-10-02] MEDS ORDERED: ROCURONIUM BROMIDE 10 MG/ML 5 ML VIAL IV ONE ×3 (14:10→16:10)
--- NOTE | 2020-10-02 14:10 | Anesthesiology Consultation ---
Date of Service October 02, 2020 Assessment & Plan (1) Encounter for pre-operative examination: Chart Review Chart Review: Acceptable Risk for Surgery and Patient NOT seen in Pre Admission Testing Consults Requested none History Surgery Operation Date: 10/02/20 07:00 Proposed Procedures p Endoscopic Retrograde Cholangiopancreatogram - Cecille Ramírez MD s Endoscopic Ultrasonography - Cecille Ramírez MD s Laparoscopic Cholecystectomy - Matteo Gudino MD Height/Weight Height: 5 ft 2 in Weight: 112.3 kg Allergies Allergy/AdvReac Type Severity Reaction Status Date / Time latex Allergy Intermediate Hives/Itchi Unverified 10/01/20 12:55 ng hydrocodone Allergy Unknown Hives Unverified 10/01/20 12:55 Medications Home Medications Medication Instructions Recorded Confirmed Last Taken dihydroxyaluminum sodium carb 334 334 mg PO DIRECTED PRN 10/01/20 10/01/20 10/01/20 mg chewable tablet 6 total etonogestrel 68 mg subdermal 68 mg SUBDERMAL CONT 10/01/20 10/01/20 10/01/20 implant (Nexplanon) ibuprofen 200 mg tablet 200 mg PO Q6H PRN 10/01/20 10/01/20 10/01/20 02:00 200 mg Active Medications Generic Name Dose Route Start Last Admin Trade Name Freq PRN Reason Stop Dose Admin Acetaminophen 650 mg 10/01/20 17:03 10/01/20 19:01 Acetaminophen 325 Mg Tab PO 10/31/20 17:02 650 mg Q4H PRN Administration pain/fever Piperacillin Sod/Tazobactam 120 mls @ 30 mls/hr 10/01/20 19:00 10/02/20 11:10 Sod 4.5 gm/ Dextrose IV 10/03/20 18:59 30 mls/hr Q8H MEEK Administration Protocol Acetaminophen 65 mls @ 200 mls/hr 10/02/20 08:26 10/02/20 10:46 Ofirmev IV 10/05/20 08:25 Infused Q8H PRN Infusion Pain Protocol Past Medical History Medical History Chronic migraine PCOS (polycystic ovarian syndrome) Past Family History Family History Mother Cervical cancer Father Overdose Heart disease Grandmother (Paternal) Diabetes Sister Cancer ALL Past Surgical History Surgical History History of tonsillectomy Social History Smoking Status: Current every day smoker tobacco type: cigarettes Smoking cigarettes per day: 10 Do You Dip or Chew Tobacco: No Hx Alcohol Use: No Hx Substance Use: No Physical Exam Vital Signs Last Vital Signs Temp 37.2 C 10/02/20 07:29 Pulse 72 10/02/20 07:29 Resp 17 10/02/20 07:29 BP 123/82 10/02/20 07:29 Pulse Ox 98 10/02/20 07:29 Testing Laboratory Results 10/02/20 06:49 10/02/20 06:49 Urine Color Yellow 10/01/20 10:55 Urine Appearance Clear (Clear) 10/01/20 10:55 Urine pH 7.0 (4.5-7.5) 10/01/20 10:55 Ur Specific [place] 1.007 (1.000-1.030) 10/01/20 10:55 Urine Protein Negative (Negative) 10/01/20 10:55 Urine Glucose (UA) Negative (Negative) 10/01/20 10:55 Urine Ketones Negative (Negative) 10/01/20 10:55 Urine Nitrite Negative (Negative) 10/01/20 10:55 Ur Leukocyte Esterase 2+ (Negative) H 10/01/20 10:55 Urine WBC (Auto) 5-10 /hpf (0-5) H 10/01/20 10:55 Urine RBC (Auto) 0-4 /hpf (0-4) 10/01/20 10:55 U Hyaline Cast (Auto) 0 /lpf (0-5) 10/01/20 10:55 U Epithel Cells (Auto) >30 /lpf (0-5) H 10/01/20 10:55 Urine Bacteria (Auto) 1+ (Negative) H 10/01/20 10:55 Urine Test Negative (Negative) 10/01/20 10:55 10/01/20 10:55 Urine Test Negative
[2020-10-02] MEDS ORDERED: SCOPOLAMINE 1 MG TDSY TD ONE ×2 (14:17→14:26)
--- NOTE | 2020-10-02 14:21 | History & Physical Bridge Note ---
Date of Service October 02, 2020 History & Physical Bridge Note I have examined the patient, reviewed the History & Physical and in the interval since the performance of the History & Physical I have noted the following changes of clinical significance: no changes noted
[2020-10-02] MEDS ORDERED: ePHEDrine sulfate 50 MG/ML AMP IV PRN (14:26)
[2020-10-02] MEDS ORDERED: ATROPINE SULFATE 0.1 MG/ML 10ML SYR IV PRN (14:26)
[2020-10-02] MEDS ORDERED: PROMETHAZINE HCL 12.5 MG in SODIUM CHLORIDE 0.9% 50 ML IV PRN (14:26)
[2020-10-02] MEDS ORDERED: ONDANSETRON INJ 2 MG/ML 2 ML VIAL IV PRN (14:26)
[2020-10-02] MEDS ORDERED: GLYCOPYRROLATE 0.2 MG/ML VIAL ONE (15:07)
[2020-10-02] MEDS ORDERED: NEOSTIGMINE METHYLSULFATE 1 MG/ML 10ML VIAL ONE (15:07)
--- NOTE | 2020-10-02 15:35 | Operative Report ---
Post Operative Report Pre & Post Diagnosis Operation Date: 10/02/20 07:00 Pre-Op Diagnosis: Cholelithiasis and choledocholithiasis Post-Op Diagnosis: Cholelithiasis and choledocholithiasis I identified the patient and participated in the time-out.: Yes Procedure Operation Date: 10/02/20 07:00 Actual Procedures p Endoscopic Retrograde Cholangiopancreatogram(Not Applicable) - Cecille Ramírez MD s Endoscopic Ultrasonography(Not Applicable) - Cecille Ramírez MD s Laparoscopic Cholecystectomy(Not Applicable) - Matteo Gudino MD Surgeon Cecille Ramírez MD Gis Mapping Technician None Estimated Blood Loss 0 Findings See Below (Choledocholithiasis removed) Specimens None Description of Procedure EUS/ERCP I attest to the content of the Intraoperative Record and any orders documented therein. Any exceptions are noted below.
--- NOTE | 2020-10-02 15:38 | GI REPORT ---
Patient Name: Bushra Cardona Procedure Date: 10/02/2020 2:22 PM Date of : 2000 Admit Type: Inpatient Age: 20 Gender: Female Attending MD: Cecille Ramírez MD Procedure: Upper GI endoscopy Providers: Cecille Ramírez MD Referring MD: GIOVANNY JUSTIN Indications: Abdominal pain Medicines: General Anesthesia Complications: No immediate complications. Estimated Blood Loss: Estimated blood loss: none. Procedure: Pre-Anesthesia Assessment: - Prior to the procedure, a History and Physical was performed, and patient medications, allergies and sensitivities were reviewed. The patient's tolerance of previous anesthesia was reviewed. - The risks and benefits of the procedure and the sedation options and risks were discussed with the patient. All questions were answered and informed consent was obtained. - Patient identification and proposed procedure were verified prior to the procedure by the physician and the nurse. The procedure was verified in the procedure room. - Pre-procedure physical examination revealed no contraindications to sedation. After obtaining informed consent, the endoscope was passed under direct vision. Throughout the procedure, the patient's blood pressure, pulse, and oxygen saturations were monitored continuously. The Endoscope was introduced through the mouth, and advanced to the second part of duodenum. The upper GI endoscopy was accomplished without difficulty. The patient tolerated the procedure well. Findings: The examined esophagus was normal. The entire examined stomach was normal. The duodenal bulb and second portion of the duodenum were normal. Impression: - Normal esophagus. - Normal stomach. - Normal duodenal bulb and second portion of the duodenum. - No specimens collected. Recommendation: - Perform an upper endoscopic ultrasound (UEUS). Cecille Ramírez MD 10/02/2020 3:38:20 PM This report has been signed electronically. Note Initiated On: 10/02/2020 2:22 PM Number of Addenda: 0 I attest to the content of the Intraoperative Record and orders documented therein, exceptions below {[id number]}
--- NOTE | 2020-10-02 15:43 | GI REPORT ---
Patient Name: Bushra Cardona Procedure Date: 10/02/2020 2:24 PM Date of : 2000 Admit Type: Inpatient Age: 20 Gender: Female Attending MD: Cecille Ramírez MD Procedure: Upper EUS Providers: Cecille Ramírez MD Referring MD: GIOVANNY JUSTIN Indications: Suspected choledocholithiasis Medicines: General Anesthesia Complications: No immediate complications. Estimated Blood Loss: Estimated blood loss: none. Procedure: Pre-Anesthesia Assessment: - Prior to the procedure, a History and Physical was performed, and patient medications, allergies and sensitivities were reviewed. The patient's tolerance of previous anesthesia was reviewed. - The risks and benefits of the procedure and the sedation options and risks were discussed with the patient. All questions were answered and informed consent was obtained. - Patient identification and proposed procedure were verified prior to the procedure by the physician and the nurse. The procedure was verified in the procedure room. - Pre-procedure physical examination revealed no contraindications to sedation. After obtaining informed consent, the endoscope was passed under direct vision. Throughout the procedure, the patient's blood pressure, pulse, and oxygen saturations were monitored continuously. The scope was introduced through the mouth, and advanced to the second part of duodenum. The upper EUS was accomplished without difficulty. The patient tolerated the procedure well. Findings: ENDOSONOGRAPHIC FINDING: : There was no sign of significant endosonographic abnormality in the ampulla. There was dilation in the common bile duct which measured up to 9 mm. One stone was visualized endosonographically in the common bile duct. It was hyperechoic and characterized by shadowing. Many stones were visualized endosonographically in the gallbladder. They were hyperechoic and characterized by shadowing. A lesion was found in the left lobe of the liver. The lesion was hyperechoic. The lesion measured 7 mm in maximal cross-sectional diameter. Likely a Hemangioma. There was no sign of significant endosonographic abnormality in the visualized portion of the liver. There was no sign of significant endosonographic abnormality in the entire pancreas. The pancreatic duct measured up to 2 mm in diameter. There was no sign of significant endosonographic abnormality in the visualized portion of the left adrenal gland. There was no sign of significant endosonographic abnormality involving the celiac trunk. Impression: - There was no sign of significant pathology in the ampulla. - There was dilation in the common bile duct which measured up to 9 mm. - One stone was visualized endosonographically in the common bile duct. - Many stones were visualized endosonographically in the gallbladder. - There was no evidence of significant pathology in the visualized portion of the liver. - There was no sign of significant pathology in the entire pancreas. - Endosonographic images of the left adrenal gland were unremarkable. - The celiac trunk was endosonographically normal. Recommendation: - Perform an ERCP today. Cecille Ramírez MD 10/02/2020 3:42:54 PM This report has been signed electronically. Note Initiated On: 10/02/2020 2:24 PM Number of Addenda: 0 I attest to the content of the Intraoperative Record and orders documented therein, exceptions below {[id number]}
--- NOTE | 2020-10-02 15:46 | GI REPORT ---
Patient Name: Bushra Cardona Procedure Date: 10/02/2020 2:26 PM Date of : 2000 Admit Type: Inpatient Age: 20 Gender: Female Attending MD: Cecille Ramírez MD Procedure: ERCP Providers: Cecille Ramírez MD Referring MD: Matteo STANFORD . Md Indications: For therapy of bile duct stone(s) Medicines: General Anesthesia Complications: No immediate complications. Estimated Blood Loss: Estimated blood loss: none. Procedure: Pre-Anesthesia Assessment: - Prior to the procedure, a History and Physical was performed, and patient medications, allergies and sensitivities were reviewed. The patient's tolerance of previous anesthesia was reviewed. - The risks and benefits of the procedure and the sedation options and risks were discussed with the patient. All questions were answered and informed consent was obtained. - Patient identification and proposed procedure were verified prior to the procedure by the physician and the nurse. The procedure was verified in the procedure room. - Pre-procedure physical examination revealed no contraindications to sedation. After obtaining informed consent, the scope was passed under direct vision. Throughout the procedure, the patient's blood pressure, pulse, and oxygen saturations were monitored continuously. The Scope was introduced through the mouth, and advanced to the duodenum and used to inject contrast into the bile duct. The ERCP was accomplished without difficulty. The patient tolerated the procedure well. Findings: The insurance sales assistant film was normal. The esophagus was successfully intubated under direct vision. The scope was advanced to a normal major papilla in the descending duodenum without detailed examination of the pharynx, larynx and associated structures, and upper GI tract. The upper GI tract was grossly normal. A 0.035 inch straight standard wire was passed into the biliary tree. The Fusion OMNI sphincterotome was passed over the guidewire and the bile duct was then deeply cannulated. Contrast was injected. I personally interpreted the bile duct images. Ductal flow of contrast was adequate. Image quality was adequate. Contrast extended to the main bile duct. Opacification of the entire biliary tree was successful. The maximum diameter of the ducts was 9 mm. The lower third of the main bile duct contained one stone. Biliary sphincterotomy was made with a monofilament traction (standard) sphincterotome using ERBE electrocautery. There was no post-sphincterotomy bleeding. The biliary tree was swept with a 12 mm balloon starting at the bifurcation. One stone was removed. No stones remained. Indomethacin 100 mg was given via suppository to decrease the risk of post-ERCP pancreatitis (PEP). Impression: - Choledocholithiasis was found. Complete removal was accomplished by biliary sphincterotomy and balloon extraction. Recommendation: - Return patient to hospital [facility] for ongoing care. - Avoid aspirin and nonsteroidal anti-inflammatory medicines for 5 days. Cecille Ramírez MD 10/02/2020 3:45:39 PM This report has been signed electronically. Note Initiated On: 10/02/2020 2:26 PM Number of Addenda: 0 I attest to the content of the Intraoperative Record and orders documented therein, exceptions below {[id number]}
[2020-10-02] MEDS ORDERED: LIDOCAINE 1% LOCAL 20 ML VIAL ONE (15:52)
[2020-10-02] MEDS ORDERED: BUPIVACAINE 0.5 % 5 MG/1 ML MPF 30ML VIAL ONE (15:52)
--- NOTE | 2020-10-02 15:59 | Fluoroscopy Report ---
FL ERCP biliary ductal CLINICAL HISTORY: EXPLORE DUCTS COMPARISON STUDY: None. FLUOROSCOPY TIME: 25 seconds. FINDINGS: 8 fluoroscopic spot images of the right upper quadrant were submitted. The ampulla was roula ulated and contrast was injected into the dilated common bile duct. A balloon sweep was performed. IMPRESSION: Fluoroscopy provided for ERCP. ACT 112: Negative or not required by law. Electronically signed by: Kenneth Godfrey M.D. 10/02/2020 3:58 PM
[2020-10-02] MEDS ORDERED: ACETAMINOPHEN 1000 MG/100 ML IV IV ONE (16:29)
[2020-10-02] MEDS ORDERED: KETOROLAC 30 MG/ML VIAL ONE (16:42)
[2020-10-02] MEDS ORDERED: BACITRACIN OINT 15 GM TUBE ONE (16:46)
--- NOTE | 2020-10-02 16:56 | Post Operative Brief Note ---
Immediate Post Op Note v1 Date of Surgery October 02, 2020 Pre & Post Diagnosis Operation Date: 10/02/20 07:00 Pre-Op Diagnosis: Cholelithiasis and choledocholithiasis, acute cholecystitis Post-Op Diagnosis: Cholelithiasis and choledocholithiasis, acute cholecystitis I identified the patient and participated in the time-out.: Yes Procedure Operation Date: 10/02/20 07:00 Actual Procedures p Endoscopic Retrograde Cholangiopancreatogram(Not Applicable) - Cecille Ramírez MD s Endoscopic Ultrasonography(Not Applicable) - Cecille Ramírez MD s Laparoscopic Cholecystectomy(Not Applicable) - Matteo Gudino MD Surgeon Matteo Gudino MD Aboriginal Education Teacher CARLOS A [place] Estimated Blood Loss 10 Findings Consistent with Post-Op Diagnosis acute cholecystitis, cholelithiasis Fluids 1000ml Specimens gallbladder Anesthesia Type General Complications none Disposition Accompanied Patient To Recovery: Yes
--- NOTE | 2020-10-02 17:09 | Hospitalist Progress Note ---
Date of Service October 02, 2020 Assessment & Plan (1) Abdominal pain: (2) Cholelithiasis: (3) Elevated LFTs: Plan: 20 year old with acute onset abdomninal pain with transaminitis AST 641, ALT 619, T bili 2.1, ALP 129 No s/sx of SIRS/SEPSIS Pain has subsided U/S: IMPRESSION: Cholelithiasis without clear sonographic evidence of acute cholecystitis. If there strong clinical concern for acute cholecystitis a nuclear hepatobiliary scan could be considered for further assessment. admit to med/surg consult gastroenterology clear liquid diet, NPO after midnight EGD/EUS by gastro tomorrow IV Zosyn IVF LR @ 125cc/hr pain control consult gen surg to eval for possible lap teresa trend lft (4) Morbid obesity with BMI of 40.0-44.9, adult: Plan: educate on diet and lifestyle modifications (5) Hypercalcemia: Plan: likely secondary to significant TUMS ingestion IV hydration am labs Dispo: med/surg PCP: Jonathan FULL CODE Pt was seen and examined with Dr. Nevarez, please see addendum Admission and Anticipated Discharge Date Admission Date: October 01, 2020 Results & Data Results & Data ([facility]) Vital Signs (Past 12 Hours) Vital Signs Temp Pulse Resp BP Pulse Ox 10/02/20 14:10 75 18 148/85 H 98 10/02/20 07:29 37.2 C 72 17 123/82 98 (1) Abdominal pain Abdominal location: unspecified location Qualified Code(s): R10.9 - Unspecified abdominal pain (2) Cholelithiasis Biliary obstruction: with biliary obstruction Cholelithiasis location: other site Qualified Code(s): K80.81 - Other cholelithiasis with obstruction
[2020-10-02] MEDS: fentaNYL citrate 100 MCG/2 ML VIAL IV PRN ×2 (17:27→17:34)
--- NOTE | 2020-10-02 18:00 | Operative Report (OR) ---
DATE OF PROCEDURE: 10/02/2020. PREOPERATIVE DIAGNOSES: Acute cholecystitis, cholelithiasis. POSTOPERATIVE DIAGNOSES: Acute cholecystitis, cholelithiasis. OPERATION: Laparoscopic cholecystectomy. SURGEON: Matteo Gudino MD. MARKETING UNDERWRITER: Alvina Preciado PA-C. ANESTHESIA: General. ESTIMATED BLOOD LOSS: About 10 mL. FINDINGS: Acute cholecystitis, cholelithiasis. COMPLICATIONS: None. INDICATIONS FOR THE PROCEDURE: This is a 20-year-old female who was admitted to the hospital for acute cholecystitis, cholelithiasis, elevated liver enzymes and I recommended to do the laparoscopic cholecystectomy, possible open. I did talk to the patient about the benefit, risk, alternate procedure. I indicated the risks may include, but not limited to, such as bleeding, infection, injury to other organs, incisional hernia, bile leak. The patient understands. She signed informed consent and I answered all questions. DETAILS OF PROCEDURE: After we identified the patient and verified the procedure, we brought the patient to the OR, put the patient in the supine position and the GI doctor did ERCP first. Once they finished ERCP and I came to operative room, the patient's abdomen was prepped and draped in routine sterile fashion after timeout, then I injected the local anesthesia by using 1% lidocaine mixed with 0.5% Marcaine just above the umbilicus. Then, I made a small incision just above the umbilicus, opened fascia, opened peritoneum. Under direct vision, put a Leona trocar in, connected to CO2 to create pneumoperitoneum, flow rate at 6 liters per minute, pressure not more than 14 mmHg. Once we get a nice pneumoperitoneum, we put the camera in, looked around the abdomen, it shows normal finding on the small bowel, large bowel, liver; however, the gallbladder shows acute cholecystitis and gallbladder wall thickening, edema. Once we confirmed acute cholecystitis, we put another three 5 mm trocars on the right upper quadrant. Once all trocars in, we used grasper to hold the base of gallbladder, put in the direction to the diaphragm. Another grasper to hold the base of gallbladder, put a lateral to expunge the triangle of Calot. The cystic duct was identified and mobilized and put two 5 mm metal clips on the proximal cystic duct and one on the distal cystic duct, then used a scissor for transection of cystic duct, rechecked, no active bleeding, no bile leak from the cystic duct and cystic artery was identified and mobilized. I put two 5 mm metal clips on the proximal cystic artery and one on the distal cystic artery, then used a scissor for transection of cystic artery, rechecked and no active bleeding. Then, we used the Bovie to take down gallbladder from liver bed, rechecked, no active bleeding, no bile leak from liver bed. Then, we removed gallbladder through the EndoCatch bag and then we reinserted the Leona trocar in, connected to CO2 to create pneumoperitoneum, again looked around the abdomen, no active bleeding, no bile leaking from the liver bed. Then, we removed all trocars under direct vision. No active bleeding from the trocar sites. Pneumoperitoneum was released, then I closed umbilical incision fascial layer by using 0 Vicryl [id number] x2, closed subcutaneous layer by using 2-0 Vicryl interruptedly, closed skin by using 4-0 Vicryl continuous running, closed another three 5 mm trocar site of skin only by using 4-0 Vicryl. Then, we put the dressing on. The patient tolerated the procedure well. All instrument, needle and sponge counts were correct x2 at the end of the case. The patient was transferred to recovery room in stable condition. After the procedure, I did talk to the patient about the OR finding and the procedure we did, patient understands and the middle school assistant principal, Alvina, was necessary for this procedure. Her role was to hold the camera, retraction, and exposure. Job ID: [id number] [facility]
[2020-10-02] MEDS ORDERED: HYDROmorphone INJ 1 MG/ML SYRINGE IV PRN (18:10)
[2020-10-02] MEDS ORDERED: IBUPROFEN 200 MG TAB PO PRN (18:10)
[2020-10-02] MEDS ORDERED: traMADol HCL 50 MG TABLET PO PRN (18:10)
[2020-10-02] MEDS ORDERED: ETONOGESTREL 68 MG IMPLANT SQ SCH (18:15)
[2020-10-02] MEDS: CHECK SCOPOLAMINE PATCH PLACEMENT SCH ×2 (18:19→23:26)
--- NOTE | 2020-10-02 18:25 | Anesthesiology Progress Note ---
Date of Service October 02, 2020 Anesthesia Post Procedure Vital Signs Vital Signs: Temp Pulse Pulse Pulse Resp BP Pulse Ox 10/02/20 18:24 37.2 C 60 18 126/84 97 10/02/20 18:11 36.8 C 59 L 18 125/82 96 10/02/20 17:55 60 20 133/84 98 10/02/20 17:45 36.6 C 57 L 20 134/84 97 10/02/20 17:35 36.6 C 84 18 140/88 99 10/02/20 17:25 66 20 126/89 100 10/02/20 17:15 61 20 137/102 H 100 10/02/20 17:05 36.8 C 60 20 146/95 H 100 10/02/20 14:10 75 18 148/85 H 98 10/02/20 07:29 37.2 C 72 17 123/82 98 10/01/20 23:00 36.8 C 84 18 118/68 99 Pain Intensity Upper Abdomen: Pain Intensity: 8 Transfer of Care Handoff Completed per policy Notes Mental Status: alert / awake / arousable and participated in evaluation Patient Amnestic to Procedure: Yes Nausea / Vomiting: adequately controlled Pain: adequately controlled Airway Patency, RR, SpO2: stable & adequate BP & HR: stable & adequate Hydration State: stable & adequate Anesthetic Complications: no major complications apparent
[2020-10-02] MEDS ORDERED: CALCIUM CARBONATE 500 MG CHEWABLE TAB PO PRN (18:30)
[2020-10-02] MEDS: LACTATED RINGER'S 1,000 ML IV SCH (18:34)
[2020-10-03] MEDS: PIPERACILLIN/TAZOBACTAM 4.5 GM in DEXTROSE 5% 100 ML IV SCH ×2 (02:52→11:45)
[2020-10-03] MEDS: LACTATED RINGER'S 1,000 ML IV SCH (07:42)
[2020-10-03] MEDS: CHECK SCOPOLAMINE PATCH PLACEMENT SCH ×2 (07:44→15:59)
[2020-10-03 07:53] LABS: Basophils # (auto) 0.01 K/uL (0-0.2); Basophils % (auto) 0.1 %; Eosinophils # (auto) 0.01 K/uL (0-0.5); Eosinophils % (auto) 0.1 %; Hematocrit (blood only) 41.5 % (37-47); Hemoglobin 14.2 g/dL (12.0-16.0); Immature Granulocytes # (auto) 0.04 K/uL (0.00-0.02); Immature Granulocytes % (auto) 0.2 %; Lymphocytes # (auto) 1.64 K/uL (1.2-3.4); Lymphocytes % (auto) 9.9 %; Mean Corpuscular Hemoglobin 28.6 pg (25-34); Mean Corpuscular Hgb Conc 34.2 g/dL (32-36); Mean Corpuscular Volume 83.7 fL (80-100); Mean Platelet Volume 9.8 fL (7.4-10.4); Monocytes # (auto) 0.71 K/uL (0.11-0.59); Monocytes % (auto) 4.3 %; Neutrophils % (auto) 85.4 %; Platelet Count 374 K/uL (130-400); RDW Coefficient of Variation 14.2 % (11.5-14.5); RDW Standard Deviation 42.7 fL (36.4-46.3); Red Blood Count 4.96 M/uL (4.2-5.4); White Blood Count 16.51 K/uL (4.8-10.8)
[2020-10-03 08:23] LABS: Albumin Level 3.4 gm/dl (3.4-5.0); Calcium 9.3 mg/dl (8.5-10.1); Creatinine Clr Calc Pharmacy 147.5 ml/min; Est GFR (African American) 139.7 ml/min; Est GFR (Non-African American) 120.6 ml/min; Potassium 4.2 mmol/L (3.5-5.1)
--- NOTE | 2020-10-03 08:32 | Gastroenterology Progress Note ---
Date of Service October 03, 2020 Assessment & Plan (1) Choledocholithiasis: (2) Cholelithiasis: (3) Elevated LFTs: Plan: Pt is a 20 yo female w upper abd pain, nausea, elevated LFTs noted to have cholelithiasis w/o acute cholecystitis and CBD of 8mm on RUQ us. Suspect possibly had choledocholithiasis which may had passe 10/02/20: EGD/EUS/ERCP done, choledocholithiasis found, removed, biliary sphincterectomy performed; followed by cholecystectomy by Surgery - Antibx coverage for 7-10 days - CL diet; may advance as tolerated if ok by Surgery - F/U CMP - Avoid ASA and NSAIDs at least 5 days after sphincterectomy - Pls recall GI prn Admission and Anticipated Discharge Date Admission Date: October 01, 2020 Supervising Physician Co-Signing Physician Notes I performed a history and physical examination of the patient today, including specifically on physical exam - soft abdomen. I have discussed the patient's management with the advanced practitioner. Please refer to the nurse practitioner's note for the documented findings and plan of care. Subjective Pt had upper abd pain, was coughing this AM and vomitted a little bit. Currently hungry wants to eat. Is passing flatus CMP pending. CBC w normal H/H, WBC 16 Review of Systems Review of Systems: All systems reviewed & are unremarkable except as noted in HPI & below Physical Exam Constitutional: WD/WN, vitals as above well groomed, cooperative and comfortable Eyes: PERRL, conjunctivae normal, anicteric sclerae ENMT: external ear and nose normal, oropharynx normal Respiratory: normal respiratory effort, lungs clear to auscultation Cardiovascular: RRR, no murmur, no edema Gastrointestinal (Abdomen): Lap teresa sites covered w dressing. TTP around surgical sites. BS hypoactive but present, abd soft Skin: no rashes, warm and dry no jaundice Psychiatric: A+Ox3, euthymic affect Lymphatic: no lymphedema Results & Data ([facility]) Vital Signs (Past 12 Hours) Vital Signs Temp Pulse Resp BP Pulse Ox 10/03/20 07:45 36.9 C 52 L 17 150/90 H 99 10/03/20 04:00 37.1 C 50 L 18 152/96 H 98 10/02/20 22:10 36.7 C 58 L 20 152/97 H 98 (1) Cholelithiasis Biliary obstruction: with biliary obstruction Cholelithiasis location: other site Qualified Code(s): K80.81 - Other cholelithiasis with obstruction
[2020-10-03 08:43] LABS: Albumin Globulin Ratio 0.9 (0.9-2); Globulin 3.9 gm/dl (2.5-4.0); Total Protein 7.3 gm/dl (6.4-8.2)
--- NOTE | 2020-10-03 10:27 | Surgery Progress Note ---
Date of Service October 03, 2020 Assessment & Plan (1) Cholelithiasis: Plan: POD # 1 s/p ERCP with biliary spincterotomy for choledocholithasis and cholecystectomy -avss - episode of emesis this morning with coughing - postop pain controlled - t. bili normalized, lfts improving Plan: Okay from surgical standpoint for discharge discharge instructions reviewed f/u surgery office in 2 weeks Antibiotics per GI on discharge (2) Elevated LFTs: Plan: Secondary to choledocholithiasis Improved postop (3) Abdominal pain: Plan: preop pain resolved Dr. Gudino has seen and examined pt, agrees with above. Admission and Anticipated Discharge Date Admission Date: October 01, 2020 Subjective very tired today, did not sleep well pain is minimal and controlled had vomiting this morning with coughing tolerated clear liquids okay Physical Exam Constitutional: WD/WN, vitals as above + obese Respiratory: normal respiratory effort; no respiratory distress, no labored breathing and no retractions Gastrointestinal (Abdomen): Inspection/Auscultation: abdomen normal to inspection and + abdominal surgical incision (covered with dressings with mild spotting present); abdomen not distended Percussion/Palpation: + abdomen tender (at incision sites, mild) and abdomen soft; no guarding and abdomen not rigid Skin: no rashes, warm and dry Psychiatric: Orientation: alert and oriented x 3 Results & Data ([facility]) Vital Signs (Past 12 Hours) Vital Signs Temp Pulse Resp BP Pulse Ox 10/03/20 07:45 36.9 C 52 L 17 150/90 H 99 10/03/20 04:00 37.1 C 50 L 18 152/96 H 98 Laboratory Results 10/03/20 10/03/20 Range/Units 07:10 07:10 WBC 16.51 H (4.8-10.8) K/uL RBC 4.96 (4.2-5.4) M/uL Hgb 14.2 (12.0-16.0) g/dL Hct 41.5 (37-47) % MCV 83.7 (80-100) fL MCH 28.6 (25-34) pg MCHC 34.2 (32-36) g/dL RDW Std Deviation 42.7 (36.4-46.3) fL RDW Coeff of Adriana 14.2 (11.5-14.5) % Plt Count 374 (130-400) K/uL MPV 9.8 (7.4-10.4) fL Immature Gran % (Auto) 0.2 % Neut % (Auto) 85.4 % Lymph % (Auto) 9.9 % [place] % (Auto) 4.3 % Eos % (Auto) 0.1 % Baso % (Auto) 0.1 % Neut # (Auto) 14.10 H (1.4-6.5) K/uL Lymph # (Auto) 1.64 (1.2-3.4) K/uL [place] # (Auto) 0.71 H (0.11-0.59) K/uL Eos # (Auto) 0.01 (0-0.5) K/uL Baso # (Auto) 0.01 (0-0.2) K/uL Immature Gran # (Auto) 0.04 H (0.00-0.02) K/uL Sodium 136 (136-145) mmol/L Potassium 4.2 (3.5-5.1) mmol/L Chloride 107 (98-107) mmol/L Carbon Dioxide 22 (21-32) mmol/L Anion Gap 7.0 (3-11) BUN 6 L (7-18) mg/dl Creatinine 0.72 (0.6-1.2) mg/dl Est Cr Clr Drug Dosing 147.5 ml/min Est GFR ( Amer) 139.7 ml/min Est GFR (Non-Af Amer) 120.6 ml/min BUN/Creatinine Ratio 9.0 L (10-20) Glucose 102 H (70-99) mg/dl Calcium 9.3 (8.5-10.1) mg/dl Total Bilirubin 1.0 D (0.2-1) mg/dl AST 71 H (15-37) U/L ALT 500 H (12-78) U/L Alkaline Phosphatase 114 (45-117) U/L Total Protein 7.3 (6.4-8.2) gm/dl Albumin 3.4 (3.4-5.0) gm/dl Globulin 3.9 (2.5-4.0) gm/dl Albumin/Globulin Ratio 0.9 (0.9-2) (1) Cholelithiasis Biliary obstruction: with biliary obstruction Cholelithiasis location: other site Qualified Code(s): K80.81 - Other cholelithiasis with obstruction (2) Abdominal pain Abdominal location: unspecified location Qualified Code(s): R10.9 - Unspecified abdominal pain
[2020-10-03] MEDS: ACETAMINOPHEN 325 MG TAB PO PRN (14:17)
--- NOTE | 2020-10-03 16:46 | Discharge Summary ---
Date of Service October 03, 2020 Admission HPI Per Admitting Provider This is an otherwise healthy F who presents to ED / to abdominal pain x 1 day. She was awoke from her sleep at 2 a.m. 2/2 to sharp stabbing abdominal pain located in epigastrum and across top of abdomen. It was constant, waxed and waned in severity, 10/10 at worse, 4/10 at best, nothing made better or worse, tried tums, associated nausea. Admits to 1 week ago having 2-3 days of, "mustard colored stool." Has had pain similar in past but not as severe. Since July 2019 has had intermittent epigastric pain with radiation to RUQ. Pain would last minutes to hours. She associated it with her nexplanon. She does not associated her sx with meals. Although, she has been at the [employer] everyday eating fried foods. She feels she is up to date on her vaccinations, admits to a prior hx of mononucleosis. Denies excessive APAP use and does not consume alcohol. She denies f/c/s, dizziness, lightheaded, chest pain, sob, n/v/d, change in urinary habits including dysuria, hematuria, increased urgency or frequency with urination. Currently pain has subsided but remains sore to touch. In ED patient remains hemodynamically stable. Lab work notable for transaminitis with AST 621, ALT 619, total bilirubin 2.1, alk phos 129. Her lipase was unremarkable as was her white count. She underwent gallbladder ultrasound which revealed cholelithiasis without clear evidence of acute cholecystitis. She received 1 dose of IV Zosyn. Discharge Data Allergies Allergy/AdvReac Type Severity Reaction Status Date / Time latex Allergy Intermediate Hives/Itchi Unverified 10/01/20 12:55 ng hydrocodone Allergy Unknown Hives Unverified 10/01/20 12:55 Consultations 10/01/20 14:19 ED Decision to Admit Stat 10/01/20 15:55 Consult General Surgery Routine 10/01/20 17:03 Consult Gastroenterology Routine Procedures Performed Operation Date: 10/02/20 07:00 Actual Procedures p Endoscopic Retrograde Cholangiopancreatogram(Not Applicable) - Cecille Ramírez MD s Endoscopic Ultrasonography(Not Applicable) - Cecille Ramírez MD s Laparoscopic Cholecystectomy(Not Applicable) - Matteo Gudino MD Ordered Studies 10/01/20 12:27 US gallbladder Stat 10/02/20 [place] ERCP biliary ductal Routine 10/02/20 12:08 US upper EUS PACS images Routine Discharge Plan Discharge Items Reason For Visit: ABDOMINAL PAIN Follow-up/Referrals: Nirmal Castillo MD [Outside Practitioners] - (Date & Time 10/06/2020 9:40 AMProvider Nirmal Castillo, [facility] ) Matteo Gudino MD [Physician] - (follow-up in 2 weeks ) Addtl Pediatric Neuropsychologist Provider Instructions: Post-Surgical ~Discharge Instructions Activity Recommendations: - lifting limitation: (25 pounds for 4 weeks), - exercise/sex/sports limit: (nonstrenuous for 2 weeks), - driving or machine use limit: (none for 1 week or until pain free and no longer taking narcotic pain medication), - Shower/bathe limit: (may shower beginning Tuesday) Diet: - Resume previous diet SPECIAL CARE INSTRUCTIONS: - May shower on Tuesday. Sponge bath and wash hair in meantime. Keep dressings day. On Tuesday, remove outer dressings and let water run over area and pat dry. - Leave steri strips on for one week and then remove. They may fall off on their own that is okay. - Call the surgeon's office with any questions or concerns - - (ex. temperature higher than 101 degrees F, excessive bleeding or pain). MEDICATIONS: - Resume previous medications unless instructed otherwise by your surgeon. -May take extra strength Tylenol as needed for mild pain -500-650 mg Tylenol every 6 hours as needed - Avoid NSAIDs (Ibuprofen, Motrin, Aleve, Aspirin) for at least 5 days - Percocet 1 every 4 hours, as needed for moderate to severe pain -Take antibiotics as prescribed for entire course - Recommend daily stool softener (Colace) while taking narcotic pain medication to avoid constipation. FOLLOW UP VISIT: - If not already scheduled, please call the office to schedule a two week f ollow-up appointment. Office number Pending Studies at Discharge: Yes Stand-Alone Forms: Work/School Release Medications and DC Order Prescriptions: Discontinued ibuprofen 200 mg Tablet 200 mg PO Q6H PRN (Reason: fever/pain) RF: 0 No Action Antacid 334 mg Tablet,Chewable 334 mg PO DIRECTED PRN (Reason: Stomach Upset) RF: 0 Nexplanon 68 mg Implant 68 mg SUBDERMAL CONT RF: 0 Admission Data Admit Date/Time: 10/01/20 14:24 Attending Provider: Gladys Nevarez Admit Provider: Gladys Nevarez Primary Care Provider: PCP,NO Other Providers: Gladys Nevarez ; Matteo Gudino ; Carina Briones
[2020-10-03] MEDS ORDERED: CIPROFLOXACIN 500 MG TAB PO SCH (21:00)
[2020-10-03] MEDS ORDERED: metroNIDAZOLE 500 MG TAB PO SCH (21:00)
== END 2020-10-03 18:04 | disposition home or self-care (01) ==
LOC: ED 09:15 → 3W 09:15
DX: F17.210 Nicotine dependence, cigarettes, uncomplicated; Z79.899 Other long term (current) drug therapy; E66.01 Morbid (severe) obesity due to excess calories; E83.52 Hypercalcemia; K80.62 Calculus of gallbladder and bile duct with acute cholecystitis without obstruction; R79.89 Other specified abnormal findings of blood chemistry; Z91.040 Latex allergy status; Z68.41 Body mass index [BMI] 40.0-44.9, adult